=== PATIENT | male | born 1975 | race Caucasian/White ===

== ENCOUNTER → 2018-10-09 | Emergency (ER) | payer OTHER ==
[~2018-10-09] MED LIST: Ketorolac Tromethamine 60 MG/2 ML VIAL ONE
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
== END ==
LOC: MADERS 23:21
DX: S02.40CA Maxillary fracture, right side, initial encounter for closed fracture (principal); S02.631A Fracture of coronoid process of right mandible, initial encounter for closed fracture; F41.9 Anxiety disorder, unspecified; F32.9 Major depressive disorder, single episode, unspecified; F43.10 Post-traumatic stress disorder, unspecified; Z79.899 Other long term (current) drug therapy; Y04.0XXA Assault by unarmed brawl or fight, initial encounter
CPT/HCPCS: 70450; 70486; 71045; 72125; 94760; 96372; J1885

== ENCOUNTER 2019-11-14 18:59 | Emergency (ER) | payer OTHER ==
[2019-11-16 12:16] LABS: SARS-CoV-2 MS2 Positive; SARS-CoV-2 N Gene Negative; SARS-CoV-2 S Gene Negative; SARS-CoV-2 orf1ab Negative
== END 2019-11-14 19:37 | disposition home or self-care (01) ==
LOC: MADERS 18:59
DX: R06.00 Dyspnea, unspecified (principal); R05 Cough; R50.9 Fever, unspecified; Z20.828 Contact with and (suspected) exposure to other viral communicable diseases; F41.9 Anxiety disorder, unspecified; F32.9 Major depressive disorder, single episode, unspecified; F43.10 Post-traumatic stress disorder, unspecified
CPT/HCPCS: 87635; 99281; U0003

== ENCOUNTER 2021-09-06 17:49 | Emergency (ER) | payer OTHER ==
[2021-09-06] MEDS ORDERED: Fluorescein Opthalmic Strip ONE (18:02)
[2021-09-06] MEDS ORDERED: Tetracaine 0.5% PF 4 ML BOT ONE (18:02)
== END 2021-09-06 18:19 | disposition home or self-care (01) ==
LOC: MADERS 17:49
DX: H00.016 Hordeolum externum left eye, unspecified eyelid (principal); F17.210 Nicotine dependence, cigarettes, uncomplicated; Z79.899 Other long term (current) drug therapy
CPT/HCPCS: 99283